=== PATIENT | male | born 2000 | race Caucasian/White ===

== ENCOUNTER → 2021-05-07 09:30 | Outpatient (REF) | payer OTHER, SELFPAY ==
--- NOTE | 2021-05-07 09:30 | CA_ITS ---
Transthoracic Echocardiogram Patient (Last, First, Middle): Min Ham, Gender: Male Date of : 2000 Age: 20 Procedure Date: 05/07/2021 Procedure Type: Transthoracic Echocardiogram Location: OP Height: 180.34 cm Weight: 145.15 kg BSA: 2.58 m2 Heart Rate: bpm BP: 110 / 68 mmHg Small Animal Caretaker: DANNY Referring MD: Karen Mendez MD Cafeteria Worker: Damaso Jarvis MD Symptoms: SOB AFTER COVID Study Quality: Good ECG Rhythm: Sinus Conclusions: - Essentially normal study Findings Left Ventricle Normal left ventricular size, thickness, and systolic function. The visually estimated ejection fraction is between 55-60%. Diastolic function is normal for age. Right Ventricle Normal right ventricular cavity size and systolic function. Atria Both atria are normal in size. Interatrial shunt cannot be excluded. Aortic Valve The aortic valve structure and function is likely normal. There is no aortic valve stenosis. There is no aortic valve regurgitation. Mitral Valve Normal mitral valve structure and function. There is trace mitral valve regurgitation. There is no mitral valve stenosis. Pulmonic Valve The pulmonic valve is likely normal. Tricuspid Valve Normal tricuspid valve structure. There is trace tricuspid valve regurgitation. The right ventricular systolic pressure is normal. Normal right atrial pressure. There is no evidence of pulmonary hypertension. Great Vessels All visible segments of the aorta are normal in size. The pulmonary artery was not well visualized. Venous The inferior vena cava is normal in size and collapses greater than 50% with inspiration. Pericardium/Pleural There is no evidence of pericardial effusion. Prior Study Comparison No prior study available for comparison. Measurements 2D Linear Measurements IVSd: 1.07 0.6-0.9/0.6-1.0 cm LVIDd: 4.83 3.9-5.3/4.2-5.9 cm LVIDd Index: 1.87 2.4-3.2/2.2-3.1 cm/m2 LVIDs: 3.48 2.0-3.6 cm LVPWd: 1.04 0.7-1.1 cm Ao Root: 3.00 2.1-3.5 cm LA Diam: 3.90 2.7-3.8/3.0-4.0 cm LAIDs Index: 1.51 1.5-2.3 cm/m2 LV Mass: 230.44 67-162/88-224 g LV Mass Index: 89.32 43-95/49-115 g/m2 LVOT Diam: 2.40 3.0+(-)1.3 cm Mitral Valve MV Pk E: 0.52 MV PK A: 0.44 MV Decel Time: 245.00 E/A: 1.20 E'Lateral: 12.90 E'Medial: 8.16 E/E' Med: 6.40 E/E' Lat: 4.10 PHT: 72.00 MVA PHT: 3.06 Decel [place]: 2.13 Aortic Valve AoV Pk Zachary: 1.00 AoV Pk Grad: 4.00 LVOT LVOT Pk Zachary: 0.86 LVOT Mn Zachary: 0.58 LVOT VTI: 0.20 LVOT Pk Grad: 3.00 LVOT Mn Grad: 2.00 LVOT Diam: 2.40 LVOT Area: 4.52 Diastolic Function MV Pk E: 0.52 MV Pk A: 0.44 E/A: 1.20 E'Medial: 8.16 E/E' Med: 6.40 E' Laterial: 12.90 E/E' Lat: 4.10 Tricuspid Valve TR Pk Zachary: 1.89 TR Pk Grad: 14.00 Great Vessels Aorta Ao Root-2D: 3.00 2.0-3.7 cm Ao Asc: 2.80 2.1-3.4 cm Updated in Other Vendor System with Status of Final Damaso Jarvis MD electronically signed on 05/07/2021 4:09:48 PM with status of Final
== END ==
LOC: HO.CARD 09:30
PROVIDERS: PCP Internal Medicine; Visit Provider Internal Medicine
DX: R06.02 Shortness of breath (principal); Z86.16 Personal history of COVID-19
CPT/HCPCS: 93306

== ENCOUNTER → 2022-03-03 20:57 | Outpatient (REF) | payer OTHER, SELFPAY | LOC: HO.SL 20:57 | PROVIDERS: PCP Internal Medicine; Visit Provider Internal Medicine | DX: G47.33 Obstructive sleep apnea (adult) (pediatric) (principal); R06.83 Snoring | CPT/HCPCS: 95811 ==